=== PATIENT | female | born 1960 | race Caucasian/White ===

== ENCOUNTER → 2024-03-26 08:32 | Outpatient (REF) | payer BC, SELFPAY | LOC: HWRAD 08:32 | PROVIDERS: ATTENDING PHYSICIAN Obstetrics & Gynecology Gynecology; FAMILY PHYSICIAN Family Medicine | DX: N83.209 Unspecified ovarian cyst, unspecified side (principal); N28.1 Cyst of kidney, acquired | CPT/HCPCS: 76775; 76830; 76856 ==

== ENCOUNTER → 2024-08-28 07:55 | Outpatient (REF) | payer BC, SELFPAY | LOC: RAD 07:55 | PROVIDERS: ATTENDING PHYSICIAN Family Medicine; FAMILY PHYSICIAN Family Medicine | DX: I10 Essential (primary) hypertension (principal); Z82.49 Family history of ischemic heart disease and other diseases of the circulatory system; I16.0 Hypertensive urgency; L30.9 Dermatitis, unspecified | CPT/HCPCS: 93975 ==

== ENCOUNTER → 2025-02-13 15:08 | Outpatient (REF) | payer BC, SELFPAY ==
[2025-02-13 15:58] LABS: Hematocrit 36.9 % (37.0-47.0); Hemoglobin 12.5 g/dL (12.0-16.0); Mean Corp Hgb Conc. 33.9 g/dL (33.0-37.0); Mean Corpuscular Volume 87.6 fL (81.0-99.0); Nucleated Red Blood Cells % 0 %; Platelet Count 389 10^3/uL (130-400); Red Cell Dist. Width 13.2 % (11.5-14.5)
== END ==
LOC: REG 15:08
PROVIDERS: FAMILY PHYSICIAN Family Medicine
DX: K57.90 Diverticulosis of intestine, part unspecified, without perforation or abscess without bleeding (principal)
CPT/HCPCS: 36415; 85025

== ENCOUNTER → 2025-02-21 13:43 | Outpatient (REF) | payer BC, SELFPAY | LOC: RAD 13:43 | DX: K57.90 Diverticulosis of intestine, part unspecified, without perforation or abscess without bleeding (principal) | CPT/HCPCS: 74177; Q9967 ==